=== PATIENT | female | born 1975 | race Caucasian/White ===

== ENCOUNTER → 2017-09-16 | Outpatient (CLI) | payer BC ==
--- NOTE | 2017-09-16 09:04 | Diagnostic Imaging Report ---
PROCEDURE: CT abdomen and pelvis without contrast. TECHNIQUE: Multiple contiguous axial images were obtained through the abdomen and pelvis without the use of intravenous contrast. INDICATION: Right lower quadrant pain. Nausea and vomiting. COMPARISON: 12/14/2014. FINDINGS: The visualized portions of the lung bases appear unremarkable. The hepatic dome is not included in this exam. The gallbladder, pancreas, spleen, and adrenal glands appear unremarkable for an unenhanced exam. The right kidney demonstrates no hydronephrosis or stones. The left kidney is absent. There are bilateral adnexal surgical clips seen which could relate to prior tubal ligation. Correlate clinically. Otherwise, the uterus and adnexa appear grossly unremarkable. There is a tiny fat-containing umbilical hernia. There is no bowel obstruction. No significant free fluid or fluid collection in the abdomen or pelvis is seen. The abdominal aorta is normal in caliber. No periaortic significantly enlarged lymph node is seen. The osseous structures appear grossly unremarkable. IMPRESSION: Tiny fat-containing umbilical hernia. No acute process. Dictated by: Dictated on workstation # [id number]
== END ==
LOC: RAD 08:24
PROVIDERS: ATTEND Internal Medicine
DX: R10.31 Right lower quadrant pain (principal); K42.9 Umbilical hernia without obstruction or gangrene
CPT/HCPCS: 74176

== ENCOUNTER → 2018-05-08 | Outpatient (CLI) | payer BC ==
[~2018-05-08] MED LIST: CATHETER FLUSH 10 ML SYR IV PRN; IOHEXOL 350 MG/ML 100 ML (OMNIPAQUE 350) VIAL IV ONE; NS 250 ML (IVPB) BAG IV ONE; RECEIVED CONTRAST (Hold Metformin) IV SCH
--- NOTE | 2018-05-08 18:39 | Diagnostic Imaging Report ---
PROCEDURE: CT abdomen and pelvis with contrast. TECHNIQUE: Multiple contiguous axial images were obtained through the abdomen and pelvis after administration of intravenous contrast. INDICATION: Abdominal pain. COMPARISON: CT abdomen of 09/16/2017. FINDINGS: Lower chest: The lung bases are clear. No pericardial or pleural effusion. Peritoneum: No free intraperitoneal air or fluid. Liver and biliary system: Diffuse hypoattenuation of the liver is indicative of hepatic steatosis. No focal hepatic lesion. The gallbladder is normal. No biliary duct dilation. Spleen and Pancreas: Spleen is normal. The pancreas enhances normally without mass lesion or peripancreatic inflammatory changes. Adrenals: Normal. tract: Right kidney enhances normally and is without mass lesion or obstruction. Left kidney is absent. Urinary bladder is normally distended without wall thickening. Uterus and ovaries are normal in appearance for patient's age. GI tract: Stomach is decompressed. No bowel obstruction. No pericolonic inflammatory changes. Appendectomy. Vasculature and Lymph nodes: Normal caliber aorta. No abdominal or pelvic lymphadenopathy. Musculoskeletal: No concerning osseous lesion. IMPRESSION: 1. No acute obstructive or inflammatory process in the abdomen or pelvis. 2. Diffuse hepatic steatosis. 3. Absent left kidney. Dictated by: Dictated on workstation # [id number]
== END ==
LOC: RAD 17:21
PROVIDERS: ATTEND Nurse Practitioner Family
DX: K76.0 Fatty (change of) liver, not elsewhere classified (principal); Z90.5 Acquired absence of kidney
CPT/HCPCS: 74177